=== PATIENT | male | born 1935 | race Caucasian/White ===

== ENCOUNTER 2016-12-15 15:46 | Emergency (ER) | payer OTHER ==
[~2016-12-15] VITALS: Ht 175.3 cm; Wt 80.0 kg
[2016-12-15 15:50] VITALS: Ht 175.3 cm; Wt 80.0 kg
[2016-12-15] MEDS ORDERED: IBUPROFEN 600 MG TAB PO ONE (16:30)
--- NOTE | 2016-12-15 17:57 | ERD ---
ER Documentation Chief Complaint Date/Time DATE: 12/15/16 TIME: 17:52 Chief Complaint LT KNEE PAIN S/P TRIP AND FALL ON SATURDAY HPI This is an 81-year-old male brought into the ER by daughter for left knee pain after fall. Daughter states that patient slipped and fell while in his home and then complained of left knee pain and difficulty ambulating. Daughter states patient complained of pain yesterday and now denies pain. Today, patient has difficulty ambulating in and out of the truck or bending over. Denies hip, katz or ankle pain. No foot pain. Daughter states swelling has gone down since yesterday. No warmth, erythema or drainage. No lesions or rash. Daughter states she did not witness fall however patient states he did not hit his head. No loss of consciousness. Daughter states patient is acting normally. ROS All systems reviewed and are negative except as per history of present illness. Medications Home Meds Active Scripts Ibuprofen* (Motrin*) 600 Mg Tab, 600 MG PO Q6, #15 TAB Prov:KEYUR DELACRUZ NP 12/15/16 Allergies Allergies: Coded Allergies: No Known Allergy (Unverified , 12/15/16) PMhx/Soc Medical and Surgical Hx: pt denies Medical Hx, pt denies Surgical Hx Hx Alcohol Use: Yes Hx Substance Use: No Hx Tobacco Use: Yes Smoking Status: Current every day smoker Physical Exam Vitals Vital Signs Date Time Temp Pulse Resp B/P Pulse Ox O2 Delivery O2 Flow Rate FiO2 12/15/16 18:46 97.8 62 18 129/59 96 Room Air 12/15/16 15:50 97.8 80 18 129/68 96 Physical Exam Const: No acute distress, alert Head: Atraumatic Eyes: Normal Conjunctiva ENT: Normal External Ears, Nose and Mouth. Neck: Full range of motion..~ No meningismus. Resp: Clear to auscultation bilaterally Cardio: Regular rate and rhythm, no murmurs Abd: Soft, non tender, non distended. Normal bowel sounds Skin: No petechiae or rashes Back: No midline or flank tenderness Ext: No cyanosis, or edema. limited flexion to left knee compared to right knee. Mild posterior swelling to left knee. small abrasion to near left patella. Neur: Awake and alert Psych: Normal Mood and Affect Results 24 hrs Current Medications Medications (Trade) Dose Ordered Sig/Maddy Route PRN Reason Start Time Stop Time Status Last Admin Dose Admin Ibuprofen (Motrin) 600 mg ONCE ONCE PO 12/15/16 16:30 12/15/16 16:31 DC 12/15/16 16:29 Procedures/MDM [place] [address] Radiology Main Line: [phone] DIAGNOSTIC IMAGING REPORT Patient: LISA CORONADO : 1935 Age: 81 Sex: M MR #: [id number] DOS: 12/15/161614 Ordering MD: KEYUR DELACRUZ NP Location: [facility] Room/Bed: PROCEDURE: knee x-ray CLINICAL INDICATION: Fall. Left knee pain. TECHNIQUE: AP, lateral and oblique views of the left knee were obtained. COMPARISON: None FINDINGS: No evidence of fracture or dislocation. Mild bilateral tricompartment joint space narrowing with moderate to marked tricompartmental joint line spurring. Large suprapatellar joint effusion raising the question of internal derangement. No soft tissue or osseous abnormality. IMPRESSION: 1. No fracture or dislocation. 2. Advance tricompartmental degenerative joint disease. large suprapatellar joint effusion. 3. No soft tissue abnormality. [place] [address] [facility] Main Line: [phone] DIAGNOSTIC IMAGING REPORT Patient: LISA CORONADO : 1935 Age: 81 Sex: M MR #: [id number] DOS: 12/15/161614 Ordering MD: KEYUR DELACRUZ NP Location: [facility] Room/Bed: PROCEDURE: XR Hip. CLINICAL INDICATION: Fall. Left hip pain. TECHNIQUE: AP and frog lateral views of the left hip were performed. COMPARISON: None. FINDINGS: There is normal mineralization and alignment. No fracture or osseous lesion is identified. Minimal acetabular spurring. There are otherwise normal joints without evidence of arthritis or effusion. The soft tissues are unremarkable. IMPRESSION: Unremarkable left hip. MDM; this is an 81-year-old male brought into the ER by daughter for left knee pain and swelling status post fall 4 days ago. Patient denies pain currently. There is mild posterior swelling. Mild limited mobility and flexion of left knee compared to right knee. No difficulty ambulating. No weakness. X-ray left knee reviewed by radiologist as no acute fracture or dislocation. Advanced tricompartmental degenerative joint disease. Large suprapatellar joint effusion. No soft tissue abnormality. X-ray left hip reviewed by radiologist is unremarkable. Low suspicion for acute dislocation or fracture. Patient is appropriate for outpatient management and will be given prescription for ibuprofen. Instructed patient to follow-up with primary care provider in the next 2-3 days for reassessment. Return to ED for any high fever, chest pain , difficulty breathing, shortness breath, wheezing, vomiting, diarrhea, abdominal pain or any new or worsening symptoms. Patient verbalizes understanding. All questions answered at discharge. Departure Diagnosis: Primary Impression: Knee injury Condition: Stable KEYUR DELACRUZ NP Dec 15, 2016 17:57
--- NOTE | 2016-12-15 18:01 | RADRPT ---
PROCEDURE: knee x-ray CLINICAL INDICATION: Fall. Left knee pain. TECHNIQUE: AP, lateral and oblique views of the left knee were obtained. COMPARISON: None FINDINGS: No evidence of fracture or dislocation. Mild bilateral tricompartment joint space narrowing with moderate to marked tricompartmental joint l ine spurring. Large suprapatellar joint effusion raising the question of internal derangement. No soft tissue or osseous abnormality. IMPRESSION: 1. No fracture or dislocation. 2. Advance tricompartmental degenerative joint disease. large suprapatellar joint effusion. 3. No soft tissue abnormality. RPTAT:AAJJ Kain Schroeder Physician Date Time Electronically viewed and signed by Physician Joanne on 12/15/2016 18:01 JACK/
--- NOTE | 2016-12-15 18:02 | RADRPT ---
PROCEDURE: XR Hip. CLINICAL INDICATION: Fall. Left hip pain. TECHNIQUE: AP and frog lateral views of the left hip were performed. COMPARISON: None. FINDINGS: There is normal mineralization and alignment. No fracture or osseous lesion is identified. Minimal a cetabular spurring. There are otherwise normal joints without evidence of arthritis or effusion. The soft tissues are unremarkable. IMPRESSION: Unremarkable left hip. RPTAT:AAJJ Kain Schroeder Physician Date Time Electronically viewed and signed by Physician Joanne on 12/15/2016 18:01 JACK/
[2016-12-15] MEDS ORDERED: IBUP-1542 PO (18:30)
[2016-12-15 18:46] VITALS: BP 129/59; PULSE 62; RESP 18; TEMP 97.8
== END 2016-12-15 18:47 | disposition home or self-care (01) ==
LOC: FTE 15:46
DX: S89.92XA Unspecified injury of left lower leg, initial encounter (principal); F17.210 Nicotine dependence, cigarettes, uncomplicated; W01.0XXA Fall on same level from slipping, tripping and stumbling without subsequent striking against object, initial encounter; Y92.009 Unspecified place in unspecified non-institutional (private) residence as the place of occurrence of the external cause
CPT/HCPCS: 73510; 73562